=== PATIENT | female | born 1965 | race Caucasian/White ===

== ENCOUNTER 2024-01-10 07:51 | Outpatient (CLI) | payer BC | END 2024-01-10 07:52 | disposition home or self-care (01) | LOC: CT 07:51 | PROVIDERS: ATTEND Family Medicine | DX: R47.81 Slurred speech (principal); R41.0 Disorientation, unspecified; R29.810 Facial weakness | CPT/HCPCS: 70450 ==

== ENCOUNTER 2024-06-19 08:38 | Outpatient (CLI) | payer BC ==
[2024-06-19] MEDS ORDERED: Iopamidol 370 76% 100 ML VIAL ONE (15:09)
== END 2024-06-19 08:39 | disposition home or self-care (01) ==
LOC: BICCT 08:38
PROVIDERS: ATTEND Surgery
DX: K43.9 Ventral hernia without obstruction or gangrene (principal); R16.0 Hepatomegaly, not elsewhere classified
CPT/HCPCS: 74177; 82565; Q9967